=== PATIENT | female | born 1985 | race Two or more races ===

== ENCOUNTER 2018-09-01 19:49 | Emergency (ER) | payer MEDICAID ==
[~2018-09-01] VITALS: Ht 157.5 cm; Wt 82.6 kg
--- NOTE | 2018-09-01 20:05 | NUR ---
ED Nurse Note: Pt arrived ED from home. C/o left ankle pain 01/01 due to fell from [place] at home today. Pt is A/OX 4. Vital signs stable at this time, waiting for orders.
[2018-09-01] MEDS ORDERED: IBUPROFEN600 MG ORAL (21:10)
--- NOTE | 2018-09-01 21:14 | NUR ---
ER DISCHARGE NOTE: Patient is cleared to be discharged per Dr. Pulido. X-ray done, no fracture was found at this time. Pain meds given as ordered. Bianca bandage and crutches applied. Pt is A/O x 4 on room air with stable vital signs. Pt was given D/C and prescription instructions and was able to verbalize understanding. Pt's ID band removed. Pt is able to ambulate with crutches well and took all belongings.
[2018-09-01 21:20] VITALS: BP 125/81
--- NOTE | 2018-09-02 10:31 | Diagnostic Imaging Report ---
Indication: Left ankle pain Technique: 3 views of the left ankle Comparison: none Findings: No acute fractures. No dislocations. Joint spaces are preserved. Normal mineralization. No radiopaque foreign body. Impression: Negative
--- NOTE | 2018-09-02 13:58 | Emergency Room Report ---
History of Present Illness General Chief Complaint: Lower Extremity Injury Source: Patient Present Illness HPI 32-year-old female presented after increased left ankle pain. Patient had onset of symptoms after a fall. Patient reports having walked down stairs and inverted her ankle. She denies any other locations of pain. Patient denied any numbness or weakness. She reports having pain to the left ankle but denies any pain to the foot.Patient reports having been unable to ambulate. She reports having severe pain which is sharp in nature. Worse with weightbearing Allergies: Coded Allergies: No Known Allergies (Unverified , 09/01/18) Patient History Past Medical History: see triage record Last Menstrual Period: 08-22-2018 Now: No Reviewed Nursing Documentation: PMH: Agreed; PSxH: Agreed Nursing Documentation-PMH Past Medical History: No Stated History Review of Systems All Other Systems: negative except mentioned in HPI Physical Exam Vital Signs Date Time Temp Pulse Resp B/P (MAP) Pulse Ox O2 Delivery O2 Flow Rate FiO2 09/01/18 20:04 98.2 82 16 121/81 96 Room Air General Appearance: well appearing, no apparent distress, alert, GCS 15 Head: normocephalic, atraumatic ENT: hearing grossly normal, normal voice Neck: full range of motion, supple Respiratory: no respiratory distress, speaking full sentences Cardiovascular #1: normal inspection Gastrointestinal: normal inspection Musculoskeletal: normal inspection, swelling - tenaerness left lateral malleolus, no foot tenderness, no medial malleolar tenderness Neurologic: normal inspection, alert, oriented x3, responsive, musical instrument maker or repairer III-XII nml as tested Psychiatric: mood/affect normal Skin: no rash Medical Decision Making Diagnostic Impression: Primary Impression: Ankle sprain ER Course Patient presented for ankle pain. Differential diagnosis included was not limited to sprain, fracture, dislocation, cellulitis, vascular insufficiency. X -ray imaging of the ankle was ordered. Patient was noted to have noted fracture on ankle x-ray 3 views interpreted by me indication pain. Patient was given ibuprofen for pain. Patient was placed in Real wrap and given crutches. Advised to follow-up with her primary care physician for recheck. Patient was advised to return if she had any worsening condition or other concerns. Last Vital Signs Date Time Temp Pulse Resp B/P (MAP) Pulse Ox O2 Delivery O2 Flow Rate FiO2 09/01/18 21:35 98.2 09/01/18 21:20 83 16 125/81 97 Room Air Status: improved Disposition: HOME, SELF-CARE Condition: Stable Scripts Ibuprofen* (MOTRIN*) 600 Mg Tablet 600 MG ORAL Q8H PRN for For Pain, #30 TAB 0 Refills Prov: Imtiaz Michel MD 09/01/18 Patient Instructions: Ankle Sprain Imtiaz Michel MD Sep 02, 2018 13:58
== END 2018-09-01 21:14 | disposition home or self-care (01) ==
LOC: EMR 20:46
DX: S93.402A Sprain of unspecified ligament of left ankle, initial encounter (principal); W10.9XXA Fall (on) (from) unspecified stairs and steps, initial encounter; Y92.9 Unspecified place or not applicable
CPT/HCPCS: 99283